=== PATIENT | male | born 1950 | race Caucasian/White ===

== ENCOUNTER 2018-09-15 09:16 | Emergency (ER) | payer MEDICARE, OTHER ==
[~2018-09-15] VITALS: Ht 177.8 cm; Wt 102.1 kg
[~2018-09-15 09:16] MED LIST: LEVO150T10 PO
[2018-09-15 10:08] VITALS: BP 135/90
[2018-09-15] MEDS ORDERED: methylPREDNISolone SOD SUCC 125 MG/2 ML VL IM ONE (11:00)
[2018-09-15] MEDS ORDERED: IPRATROPIUM BROM 0.5 MG/2.5ML INH SOL NEB ONE (11:00)
[2018-09-15] MEDS ORDERED: ALBUTEROL SULF 2.5 MG/0.5ML(0.5%) NEB SOLN NEB ONE (11:00)
== END 2018-09-15 11:54 | disposition home or self-care (01) ==
LOC: ER 09:16
DX: J20.9 Acute bronchitis, unspecified (principal)
CPT/HCPCS: 71046; 94640; 96372; 99283; J2930; J7611; J7644